=== PATIENT | female | born 1995 | race Caucasian/White ===

== ENCOUNTER 2019-07-11 00:33 | Emergency (ER) | payer SELFPAY ==
[~2019-07-11] VITALS: Ht 157.5 cm; Wt 79.1 kg
[2019-07-11] MEDS ORDERED: diphenhydrAMINE 50 MG/ML VIAL ONE (01:00)
--- NOTE | 2019-07-11 01:05 | PHYS DOC ---
Past History Past Medical History: Depression, UTI Past Medical History TIC DISORDER- extra pyramidal, Hx. polysubstance abuse Past Surgical History: Other Smoking: Cigarettes Alcohol Use: None Drug Use: Marijuana, Methamphetamine Adult General Chief Complaint Chief Complaint: ALTERED MENTAL STATUS. ".. I heard she was doing meth... I dont know how much.. she just started having these seizures... " ".. I dont know anything about her.... ". HPI HPI Patient is a 24 year old female who presents with reports of tonic clonic seizures after reported Meth use. Initial appearance appears to be extrapyramidal spasms. Pt. reported had been using meth. tonight before on set of movement disorder and mental status change. Pt. has been seen before in ED for Tic like movement, UTI and . Pt. has prior ED visits with + drug screens for Meth and Cocaine. Pt. currently having severe movement spams and twisting which she can not control. Pt. has obvious mental status changes. Pt. is protecting her airway and cross reacts to noxious stimuli. Vocalizes and resist procedures such as IV, restraints and Shi placement. Review of Systems Review of Systems Unable to completed due to pt. mental status Family History Family History No currently available Current Medications Current Medications Current Medications Medications (Trade) Dose Ordered Sig/Javed Start Time Stop Time Status Last Admin Dose Admin Lorazepam (Ativan Inj) 2 mg STK-MED ONCE 07/11/19 00:42 07/11/19 00:43 DC Allergies Allergies Allergies Coded Allergies Type Severity Reaction Last Updated Verified No Known Drug Allergies 02/14/14 No Physical Exam Physical Exam Constitutional:in acute distress, appearance as if under influence of a drug. [] HENT: Normocephalic, atraumatic, bilateral external ears normal, oropharynx moist, no oral exudates, nose normal. [] Eyes: PERRLA, EOMI, conjunctiva normal, no discharge. Dilated pupils. Neck: Normal range of motion, no tenderness, supple, no stridor. [] Cardiovascular:Tachycardia Heart rate regular rhythm, no murmur [] Lungs & Thorax: Bilateral breath sounds equal at apexes with scattered wheezes on auscultation [] Abdomen: Bowel sounds normal, soft, no tenderness, no masses, no pulsatile masses. [] Skin: Warm, dry, no erythema, no rash. Multiple tattoos. Back: No tenderness, no CVA tenderness. [] Extremities: Moving all 4 ext. Kicking . Spasms twisting like movement Neurologic: Very agitated, , cross reacts to noxious stimuli, distal sensory to noxious stimuli, twisting spasm like movement - extrapyramidal in appearance. [] Psychologic: Affect very agitated. Yelling. EKG EKG My interpretation of EKG shows sinus rhythm at 93 bpm. Does have a right bundle- branch block. Has wavering baseline because of patient's movement. No findings of acute STEMI with contralateral change.s[] Radiology/Procedures Radiology/Procedures [address] [id number] IMAGING REPORT Signed PATIENT: CARMITA HERRERA ACCOUNT: [id number] : 1995 LOCATION: ER AGE: 24 SEX: F EXAM STATUS: REG ER ORD. PHYSICIAN: RYLIE SEQUEIRA MD REASON: seizure, AMS PROCEDURE: PORTABLE CHEST 1V PORTABLE CHEST 1V INDICATION: Altered mental status. COMPARISON STUDY: None. FINDINGS: Lungs: Normal lung volume. No pulmonary mass or consolidation. The tracheobronchial tree and hilar structures are normal. Pleura: No pleural effusion or pneumothorax. Heart and Mediastinum: The cardiomediastinal silhouette is normal. The great vessels of the thorax are normal. IMPRESSION: No acute cardiopulmonary process. Electronically signed by: Mark Vogel MD (07/11/2019 4:15 AM) [id number] DICTATED AND SIGNED BY: MARK VOGEL MD DATE: 07/11/19 0415 CC: RYLIE SEQUEIRA MD; PCP,NO ~ [][address] [address] IMAGING REPORT Signed PATIENT: CARMITA HERRERA ACCOUNT: [id number] : 1995 LOCATION: ER AGE: 24 SEX: F EXAM STATUS: REG ER ORD. PHYSICIAN: RYLIE SEQUEIRA MD REASON: seizure, AMS PROCEDURE: CT HEAD AND CERVICAL SPINE WO CT HEAD AND CERVICAL SPINE WO Date: 07/11/2019 1:05 AM Clinical Indication: Seizure, altered mental status Comparison: None. Technique: 5 mm axial tomographic images were obtained of the head without contrast. These were viewed on brain and bone windows. CT imaging of the cervical spine was performed without contrast. Coronal and sagittal reformatted images were performed. One or more of the following dose reduction techniques were utilized: Automated exposure control (AEC), Adjustment of mA and/or kV according to patient size, Use of iterative reconstruction technique such as ASiR, CT scan done according to ALARA and image gently/image wisely HEAD FINDINGS: Asymmetric mild hypoattenuation in the left temporal lobe. No intra- or extra-axial mass or fluid collection. No acute hemorrhage. The ventricles are normal in size, shape, and morphology. The bowles-white matter junction is normal. The basilar cisterns are patent. The visualized paranasal sinuses are normal. The visualized portions of the orbits and globes are normal. The mastoid air cells are clear. No aggressive osseous lesion or fracture. CERVICAL SPINE FINDINGS: Straightening of the cervical lordosis. No acute fracture. No aggressive lytic or blastic osseous lesion. The intervertebral disc heights are maintained. No high-grade spinal canal stenosis or neural foraminal narrowing. The thyroid gland is normal. No cervical lymphadenopathy. The visualized aerodigestive tract is unremarkable. The visualized lung apices are clear. IMPRESSION: 1. Asymmetric mild hypoattenuation in the left temporal lobe, possibly representing edema of indeterminate etiology. Considerations would include encephalitis, ischemia, or underlying mass. This could be further characterized with contrast-enhanced MRI. 2. No acute osseous abnormality of the cervical spine. Electronically signed by: Mark Vogel MD (07/11/2019 4:14 AM) [id number] DICTATED AND SIGNED BY: MARK VOGEL MD DATE: 07/11/19 0414 CC: RYLIE SEQUEIRA MD; PCP,NO ~ Course & Med Decision Making Course & Med Decision Making Pertinent Labs and Imaging studies reviewed. (See chart for details) Critical care- 90 min. Discussed presentation, testing and tx . plan Dr. Ng. Transfer to [facility]- for Contrast MRI of Brain Dr. Ng service. Re-exam at 0745- Pupils more re-active. Extra pyramidal movements have stopped. Responds to questions. Still uncooperative. Check out to Dr. Cates will make disposition if not transfer to complete MRI. Impression: 1. Mental Status Change 2. Hx. Methamphetamine Use- prior mental status change 3. Hypomagnesium 1.7 4. Elevated CK 620 5. Past Hx. of Tic Disorder- Extrapyramidal Movements 6. Questionable Lesion of Lt Temporal Lobe [] Dragon Disclaimer Dragon Disclaimer This electronic medical record was generated, in whole or in part, using a voice recognition dictation system. Departure Departure: Disposition: HOME/RESIDENCE PRIOR TO ADM Condition: STABLE Referrals: PCP,NO (PCP) Dragon Disclaimer This chart was dictated in whole or in part using Voice Recognition software in a busy, high-work load, and often noisy Emergency Department environment. It may contain unintended and wholly unrecognized errors or omissions. Dragon Disclaimer This chart was dictated in whole or in part using Voice Recognition software in a busy, high-work load, and often noisy Emergency Department environment. It may contain unintended and wholly unrecognized errors or omissions. RYLIE SEQUEIRA MD Jul 11, 2019 01:04
[2019-07-11] MEDS ORDERED: IV RINGERS SOLUTION,LACTATED 1,000 ML IV SCH ×2 (01:15→03:15)
[2019-07-11 01:23] LABS: BASO % 1 % (0-3); EOS % 0 % (0-3); HEMATOCRIT 37.5 % (36.0-47.0); HEMOGLOBIN 12.4 g/dL (12.0-15.5); LYMPH # 2.5 x10^3/uL (1.0-4.8); LYMPH % 30 % (24-48); MEAN CORPUSCULAR HEMOGLOBIN 29 pg (25-35); MEAN CORPUSCULAR HGB CONC 33 g/dL (31-37); MEAN CORPUSCULAR VOLUME 88 fL (79-100); MONO % 12 % (0-9); NEUT # 4.7 x10^3uL (1.8-7.7); NEUT % 57 % (31-73); PLATELET COUNT 214 x10^3/uL (140-400); RED BLOOD COUNT 4.25 x10^6/uL (3.50-5.40); RED CELL DISTRIBUTION WIDTH 14.3 % (11.5-14.5); WHITE BLOOD COUNT 8.2 x10^3/uL (4.0-11.0)
[2019-07-11 01:36] LABS: CLARITY,URINE CLEAR; COLOR,URINE YELLOW
[2019-07-11 01:37] LABS: BACTERIA,URINE 0 /HPF (0-FEW); BILIRUBIN,URINE NEG (NEG); GLUCOSE,URINE NEG (NEG); NITRITE,URINE NEG (NEG); RBC,URINE 0 /HPF (0-2); SQUAMOUS EPITHELIAL CELL,UR FEW /LPF; UROBILINOGEN,URINE 0.2 mg/dL (0.2 mg/dL); WBC,URINE OCC /HPF (0-4)
[2019-07-11 01:38] LABS: CALCIUM 9.6 mg/dL (8.5-10.1); GFR 67.6; POTASSIUM 3.4 mmol/L (3.5-5.1)
[2019-07-11 01:39] LABS: BARBITURATES NEG (NEG); BENZODIAZEPINES NEG (NEG); CANNABINOIDS NEG (NEG); COCAINE NEG (NEG); METHADONE NEG (NEG); OPIATES NEG (NEG); PHENCYCLIDINE NEG (NEG)
[2019-07-11 01:40] LABS: AMPHETAMINE/METHAMPHETAMINE POS (NEG)
[2019-07-11] MEDS ORDERED: FOLIC ACID 1 MG TABLET PO ONE (01:45)
[2019-07-11] MEDS ORDERED: diphenhydrAMINE 50 MG/ML VIAL IVP ONE (01:45)
[2019-07-11] MEDS ORDERED: MVI, ADULT NO.4 WITH VIT K 10 ML, THIAMINE INJ 100 MG in IV RINGERS SOLUTION,LACTATED 1... IV ONE ×3 (01:45)
[2019-07-11 01:56] LABS: ALBUMIN 4.5 g/dL (3.4-5.0); ALBUMIN/GLOBULIN RATIO 1.5 (1.0-1.7); MAGNESIUM 1.7 mg/dL (1.8-2.4); TOTAL BILIRUBIN 0.8 mg/dL (0.2-1.0); TOTAL PROTEIN 7.6 g/dL (6.4-8.2)
[2019-07-11] MEDS ORDERED: BENZTROPINE 2 MG/2 ML AMPUL. IM ONE (02:00)
[2019-07-11 02:12] LABS: INFLUENZA A PATIENT NEGATIVE (NEGATIVE); INFLUENZA B PATIENT NEGATIVE (NEGATIVE)
[2019-07-11 02:38] LABS: U PREG PATIENT NEGATIVE (NEG)
--- NOTE | 2019-07-11 02:42 | EKG ---
[address] [address] Test Date: 2019-07-11 Test Time: 01:14:58 Pat Name: CARMITA HERRERA Department: Room: Gender: F Station Master: : 1995 Requested By: RYLIE SEQUEIRA Order Number: [id number] Reading MD: Measurements Intervals [place] Rate: 93 P: 51 GA: 136 QRS: 62 QRSD: 90 T: 51 QT: 368 QTc: 460 Interpretive Statements SINUS RHYTHM INCOMPLETE RIGHT BUNDLE BRANCH BLOCK OTHERWISE NORMAL ECG RI6.01 No previous ECG available for comparison
[2019-07-11] MEDS ORDERED: MVI, ADULT NO.4 WITH VIT K 10 ML VIAL IV ONE (03:10)
[2019-07-11] MEDS ORDERED: THIAMINE 200 MG/2 ML VIAL. IV ONE (03:10)
[2019-07-11] MEDS ORDERED: ACETAMINOPHEN 325 MG TABLET PO PRN (03:15)
[2019-07-11] MEDS ORDERED: BENZTROPINE 2 MG/2 ML AMPUL. IM PRN (03:15)
[2019-07-11] MEDS ORDERED: ONDANSETRON PF 4 MG/2 ML VIAL. IVP PRN (03:15)
[2019-07-11 03:58] LABS: ACETAMIN < 2.0 mcg/mL (10-30)
--- NOTE | 2019-07-11 04:17 | RAD ---
CT HEAD AND CERVICAL SPINE WO Date: 07/11/2019 1:05 AM Clinical Indication: Seizure, altered mental status Comparison: None. Technique: 5 mm axial tomographic images were obtained of the head without contrast. These were viewed on brain and bone windows. CT imaging of the cervical spine was performed without contrast. Coronal and sagittal reformatted images were performed. One or more of the following dose reduction techniques were utilized: Automated exposure control (AEC), Adjustment of mA and/or kV according to patient size, Use of iterative reconstruction technique such as ASiR, CT scan done according to ALARA and image gently/image wisely HEAD FINDINGS: Asymmetric mild hypoattenuation in the left temporal lobe. No intra- or extra-axial mass or fluid collection. No acute hemorrhage. The ventricles are normal in size, shape, and morphology. The bowles-white matter junction is normal. The basilar cisterns are patent. The visualized paranasal sinuses are normal. The visualized portions of the orbits and globes are normal. The mastoid air cells are clear. No aggressive osseous lesion or fracture. CERVICAL SPINE FINDINGS: Straightening of the cervical lordosis. No acute fracture. No aggressive lytic or blastic osseous lesion. The intervertebral disc heights are maintained. No high-grade spinal canal stenosis or neural foraminal narrowing. The thyroid gland is normal. No cervical lymphadenopathy. The visualized aerodigestive tract is unremarkable. The visualized lung apices are clear. IMPRESSION: 1. Asymmetric mild hypoattenuation in the left temporal lobe, possibly representing edema of indeterminate etiology. Considerations would include encephalitis, ischemia, or underlying mass. This could be further characterized with contrast-enhanced MRI. 2. No acute osseous abnormality of the cervical spine. Electronically signed by: Nabeel Vogel MD (07/11/2019 4:14 AM) [id number]
--- NOTE | 2019-07-11 04:18 | RAD ---
PORTABLE CHEST 1V INDICATION: Altered mental status. COMPARISON STUDY: None. FINDINGS: Lungs: Normal lung volume. No pulmonary mass or consolidation. The tracheobronchial tree and hilar structures are normal. Pleura: No pleural effusion or pneumothorax. Heart and Mediastinum: The cardiomediastinal silhouette is normal. The great vessels of the thorax are normal. IMPRESSION: No acute cardiopulmonary process. Electronically signed by: Nabeel Vogel MD (07/11/2019 4:15 AM) [id number]
[2019-07-11] MEDS ORDERED: ACYCLOVIR SODIUM 1,000 MG in IV DEXTROSE 5% 250 ML IV SCH (05:00)
[2019-07-11] MEDS ORDERED: ACYCLOVIR SODIUM 500 MG in IV DEXTROSE 5% 100 ML IV SCH (06:00)
[2019-07-11 07:08] VITALS: BP 102/52
[2019-07-11] MEDS ORDERED: IV DEXTROSE 5% 250 ML IV ONE (07:56)
[2019-07-11] MEDS ORDERED: ACYCLOVIR SODIUM 500 MG/10 ML VIAL IV ONE ×2 (07:56→08:00)
[2019-07-11] MEDS ORDERED: IPRATRPIUM/ALBUTEROL 0.5/2.5MG 3 ML NEBU. NEB SCH (08:00)
== END 2019-07-11 09:45 | disposition short-term general hospital (02) ==
LOC: ER 00:33
DX: R41.82 Altered mental status, unspecified (principal); F15.10 Other stimulant abuse, uncomplicated; R79.89 Other specified abnormal findings of blood chemistry; G40.89 Other seizures; F32.9 Major depressive disorder, single episode, unspecified; F12.10 Cannabis abuse, uncomplicated; F19.10 Other psychoactive substance abuse, uncomplicated; Z87.440 Personal history of urinary (tract) infections
CPT/HCPCS: 36415; 51702; 70450; 71045; 72125; 80053; 80307; 80329; 81001; 81025; 82553; 83605; 83690; 83735; 83880; 84443; 84484; 85025; 85379; 85610; 85651; 85730; 87040; 87804; 93005; 96361; 96365; 96367; 96372; 96375; 99285; G0480; J0133; J0515; J1200; J2060; J7120; 82003

== ENCOUNTER 2019-12-03 19:09 | Emergency (ER) | payer SELFPAY ==
[~2019-12-03] VITALS: Ht 157.5 cm; Wt 68.3 kg
[2019-12-03 19:22] VITALS: BP 127/78
[2019-12-03] MEDS ORDERED: CLINDAMYCIN HCL 150 MG CAPSULE PO ONE (19:30)
[2019-12-03] MEDS ORDERED: MUPI22OI2 TP (19:31)
[2019-12-03] MEDS ORDERED: CLIN300C8 PO (19:31)
--- NOTE | 2019-12-03 19:31 | PHYS DOC ---
Past History Past Medical History: Depression, UTI Past Surgical History: Other Smoking: Cigarettes Alcohol Use: None Drug Use: Marijuana, Methamphetamine General Adult EDM: Chief Complaint: SKIN PROBLEM HPI: HPI: Patient is a [age] year old [sex] who presents with [] Review of Systems: Review of Systems: Constitutional: Denies fever or chills Eyes: Denies change in visual acuity HENT: Denies nasal congestion or sore throat Respiratory: Denies cough or shortness of breath Cardiovascular: Denies chest pain or edema GI: Denies abdominal pain, nausea, vomiting, bloody stools or diarrhea : Denies dysuria Musculoskeletal: Denies back pain or joint pain Integument: Denies rash Neurologic: Denies headache, focal weakness or sensory changes Endocrine: Denies polyuria or polydipsia Lymphatic: Denies swollen glands Psychiatric: Denies depression or anxiety Heart Score: Risk Factors: Risk Factors: DM, Current or recent (<one month) smoker, HTN, HLP, family history of CAD, obesity. Risk Scores: Score 0 - 3: 2.5% MACE over next 6 weeks - Discharge Home Score 4 - 6: 20.3% MACE over next 6 weeks - Admit for Clinical Observation Score 7 - 10: 72.7% MACE over next 6 weeks - Early Invasive Strategies Allergies: Allergies: Allergies Coded Allergies Type Severity Reaction Last Updated Verified No Known Drug Allergies 02/14/14 No Physical Exam: PE: Constitutional: Well developed, well nourished, no acute distress, non-toxic appearance. [] HENT: Normocephalic, atraumatic, bilateral external ears normal, oropharynx moist, no oral exudates, nose normal. [] Eyes: PERRLA, EOMI, conjunctiva normal, no discharge. [] Neck: Normal range of motion, no tenderness, supple, no stridor. [] Cardiovascular:Heart rate regular rhythm, no murmur [] Lungs & Thorax: Bilateral breath sounds clear to auscultation [] Abdomen: Bowel sounds normal, soft, no tenderness, no masses, no pulsatile masses. [] Skin: Warm, dry, no erythema, no rash. [] Back: No tenderness, no CVA tenderness. [] Extremities: No tenderness, no cyanosis, no clubbing, ROM intact, no edema. [] Neurologic: Alert and oriented X 3, normal motor function, normal sensory function, no focal deficits noted. [] Psychologic: Affect normal, judgement normal, mood normal. [] EKG: EKG: [] Radiology/Procedures: Radiology/Procedures: [] Course & Med Decision Making: Course & Med Decision Making Pertinent Labs and Imaging studies reviewed. (See chart for details) [] Dragon Disclaimer: Dragon Disclaimer: This electronic medical record was generated, in whole or in part, using a voice recognition dictation system. Departure Departure: Impression: Primary Impression: Rash and nonspecific skin eruption Disposition: HOME/RESIDENCE PRIOR TO ADM Condition: STABLE Referrals: PCP,NO (PCP) Patient Instructions: Folliculitis, Rash, Cbog-dw-Uyhm Scripts Mupirocin (MUPIROCIN) 22 Gm Oint...g. 1 CARI TP TID for Infection for 7 Days, #15 GM Prov: ALEXANDRIA SANCHES DO 12/03/19 Clindamycin Hcl (CLINDAMYCIN HCL) 300 Mg Capsule 1 CAP PO TID for infection for 7 Days, #21 CAP Prov: ALEXANDRIA SANCHES DO 12/03/19 Justification of Admission: Justification of Admission: Justification of Admission Dx: N/A ALEXANDRIA SANCHES DO Dec 03, 2019 19:31
== END 2019-12-03 19:35 | disposition home or self-care (01) ==
LOC: ER 19:09
DX: R21 Rash and other nonspecific skin eruption (principal); F17.210 Nicotine dependence, cigarettes, uncomplicated; Z87.440 Personal history of urinary (tract) infections
CPT/HCPCS: 99283